=== PATIENT | male | born 1995 | race African-American/Black ===

== ENCOUNTER 2020-01-21 10:44 | Emergency (ER) | payer OTHER ==
[~2020-01-21] VITALS: Ht 177.8 cm; Wt 116.7 kg
[2020-01-21] MEDS ORDERED: NAPROXEN (10:51)
[2020-01-21 12:52] VITALS: BP 129/59
--- NOTE | 2020-01-21 14:20 | REP ---
SCROTAL ULTRASOUND: Real-time sonographic evaluation of the scrotum and contents performed. The testicles are normal in size and echotexture, right testicle, right testicle measuring 4.3 x 2.0 x 2.7 cm and left testicle 3.8 x 1.9 x 2.9 cm. There is no testicular mass or torsion, blood flow is seen in each testicles with duplex Doppler evaluation. Small cluster of calcifications are seen in the mid posterior right testicle. A cyst in the body of the left epididymis measures 6 mm. No varicocele is seen. There is not a significant hydrocele. IMPRESSION: No testicular mass or torsion. No evidence of varicocele. Subcentimeter cyst left epididymis. Electronically Signed by Raheem Maguire MD 01/21/2020 03:08 P
== END 2020-01-21 12:51 | disposition home or self-care (01) ==
LOC: M ED 10:44
DX: N50.3 Cyst of epididymis (principal)

== ENCOUNTER 2020-05-30 22:30 | Emergency (ER) | payer OTHER ==
[~2020-05-30] VITALS: Ht 177.8 cm; Wt 121.2 kg
[~2020-05-30 22:30] MED LIST: NAPROXEN
--- NOTE | 2020-05-30 23:45 | REPVR ---
PROCEDURE INFORMATION: Exam: XR Right Hip with Pelvis when Performed Exam date and time: 05/30/2020 11:21 PM Age: 25 years old Clinical indication: Hip pain; Right hip; Additional info: Pain/ dec rom TECHNIQUE: Imaging protocol: XR Right hip with pelvis when performed. Views: 2 or 3 views. COMPARISON: No relevant prior studies available. FINDINGS: Bones/joints: Unremarkable. No acute fracture. No dislocation. Soft tissues: Unremarkable. IMPRESSION: No acute fracture. Electronically signed by: Fernando Guillaume On 05/30/2020 23:44:47 PM
[2020-05-31 00:09] VITALS: BP 119/56
== END 2020-05-31 00:10 | disposition home or self-care (01) ==
LOC: M ED 22:30
DX: M25.551 Pain in right hip (principal)

== ENCOUNTER 2020-08-11 12:27 | Inpatient (IN) | payer OTHER ==
[~2020-08-11] VITALS: Ht 177.8 cm; Wt 113.3 kg
[2020-08-11 13:12] LABS: HEMATOCRIT 42.9 % (42.0-52.0); HEMOGLOBIN 13.5 g/dl (13.5-17.5); MEAN CORPUSCULAR HEMOGLOBIN 27.9 pg (27.0-33.0); MEAN CORPUSCULAR HGB CONC 31.5 g/dl (32.0-36.5); MEAN CORPUSCULAR VOLUME 88.6 fl (80.0-96.0); PLATELET COUNT, AUTOMATED 379 10^3/uL (150-450); RED BLOOD COUNT 4.84 10^6/uL (4.30-6.10); WHITE BLOOD COUNT 8.7 10^3/uL (4.0-10.0)
[2020-08-11 13:43] LABS: AMPHETAMINES LEVEL URINE NEGATIVE (NEGATIVE); BARBITURATES URINE NEGATIVE (NEGATIVE); BENZODIAZEPINES URINE NEGATIVE (NEGATIVE); CANNABINOIDS URINE NEGATIVE (NEGATIVE); COCAINE METABOLITE URINE NEGATIVE (NEGATIVE); METHADONE URINE NEGATIVE (NEGATIVE); OPIATES URINE NEGATIVE (NEGATIVE); PHENCYCLIDINE URINE NEGATIVE (NEGATIVE)
[2020-08-11 13:54] LABS: ACETAMINOPHEN LEVEL < 2.0 UG/ML (10.0-30.0); ALBUMIN 4.3 GM/DL (3.2-5.2); ALT/SGPT 39 U/L (12-78); BILIRUBIN,DIRECT 0.1 MG/DL (0.0-0.2); BILIRUBIN,TOTAL 0.4 MG/DL (0.2-1.0); BLOOD UREA NITROGEN 24 MG/DL (7-18); CALCIUM LEVEL 9.5 MG/DL (8.5-10.1); CARBON DIOXIDE LEVEL 30 MEQ/L (21-32); CHLORIDE LEVEL 103 MEQ/L (98-107); CREATININE FOR GFR 1.23 MG/DL (0.70-1.30); ETHYL ALCOHOL (ETHANOL) < 0.003 % (0.000-0.010); GLOMERULAR FILTRATION RATE > 60.0 (>60); GLUCOSE, FASTING 107 MG/DL (70-100); POTASSIUM SERUM 4.2 MEQ/L (3.5-5.1); SALICYLATE LEVEL < 1.7 MG/DL (5.0-30.0); SODIUM LEVEL 136 MEQ/L (136-145); THYROID STIMULATING HORMONE 0.575 uIU/ML (0.358-3.740); TOTAL PROTEIN 8.5 GM/DL (6.4-8.2)
[2020-08-11] MEDS ORDERED: OLANZapine ORAL DISINTEGRATING TAB 5MG PO PRN (21:30)
[2020-08-11] MEDS ORDERED: MAALOX 30 ML SUSP *UDC PO PRN (21:30)
[2020-08-11] MEDS ORDERED: ACETAMINOPHEN TAB 650MG DOSE (2X325MG) PO PRN (21:30)
[2020-08-11] MEDS ORDERED: MOM 30ML SUSPENSION UDC PO PRN (21:30)
[2020-08-11] MEDS ORDERED: NICOTINE 21MG/24HR 1 EA TRANSDERMAL TD PRN (21:30)
[2020-08-11] MEDS ORDERED: traZODone 50 MG TAB PO PRN (21:30)
[2020-08-11 23:02] VITALS: BP 134/72
[2020-08-12 06:25] VITALS: BP 137/60
[2020-08-12] MEDS ORDERED: hydrOXYzine 50 MG TAB PO PRN (11:00)
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
--- NOTE | 2020-08-12 14:11 | HPEPDOC ---
[facility] Medical History & Physical Date of Admission Aug 12, 2020 Date of Service: Aug 12, 2020 History and Physical CHIEF COMPLAINT: Medical evaluation HISTORY OF PRESENT ILLNESS: I am asked to provide a medical assessment of patient admitted to the psychiatric unit. My assessment is limited to medical problems and does not address any psychiatric problems which is deferred to the in-house psychiatrist. Patient was admitted to the psychiatric unit because of suicidal ideation. Patient tells me he is not having medical problems. Feeling well currently. Review of systems he does tell me that he was diagnosed with having varicocele right scrotum and has arranged for a follow-up appointment to be evaluated in [place]. PAST MEDICAL HISTORY: Right scrotum varicocele PAST SURGICAL HISTORY: Denies any SOCIAL HISTORY: Denies alcohol use Denies tobacco use Denies illicit drug use [employer] FAMILY HISTORY: Mother had history of bipolar and diabetes ALLERGIES: Please see below. REVIEW OF SYSTEMS: 10 point review of systems complete all negative otherwise stated in HPI HOME MEDICATIONS: Please see below. PHYSICAL EXAMINATION: Constitutional: Awake and alert, in no apparent distress ENT: Sclera are clear. Mucosa is moist. Respiratory: Lungs CTA bilaterally. No respiratory distress Cardiovascular: RRR S1 and S2 are normal, no murmur Gastrointestinal: Abdomen is soft, non distended, non tender, BS present. Musculoskeletal: No edema. No joint deformities. Neurologic: No focal neurological deficit. Mental Status: A&O x3, normal affect Skin: Warm, dry LABORATORY DATA: See below. IMAGING: None MICROBIOLOGY: Please see below. ASSESSMENT/PLAN 25-year-old male admitted to psychiatric unit for suicidal ideation. I'm asked see the patient's for medical evaluation. # Elevated blood pressure without a diagnosis of hypertension: I recommended the patient lifestyle modifications and a low-salt diet. follow-up with pcp. Vital Signs Vital Signs Date Time Temp Pulse Resp B/P (MAP) Pulse Ox O2 Delivery O2 Flow Rate FiO2 08/12/20 06:25 98.4 82 18 137/60 (85) 99 Room Air Laboratory Data Labs 24H Laboratory Tests 2 08/11/20 19:42: Coronavirus (COVID-19)(PCR) NEGATIVE Home Medications No Active Prescriptions or Reported Meds Allergies Coded Allergies: No Known Allergies (Unverified , 01/21/20) A-FIB/CHADSVASC A-FIB History Current/History of A-Fib/PAF?: No YOUSEF,ULI Weller MD Aug 12, 2020 14:11
[2020-08-12 16:00] VITALS: BP 150/92
[2020-08-12] MEDS ORDERED: SERTRALINE HCL 25 MG TABLET PO ONE (21:00)
[2020-08-13 06:03] VITALS: BP 114/59
--- NOTE | 2020-08-13 18:13 | MHIPNPDOC ---
[facility] Progress Note Progress Note DATE OF SERVICE: 08/13/20 HISTORY: As per previous notes: Chief Complaint "I was at a tipping point, I had a bad year, I just stopped caring". 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 NEW TEST RESULTS: See below CURRENT MEDICATIONS: See below. Mental Status Examination General Appearance: well groomed, appears stated age, hospital scrubs/clothing Build: tall, other (muscular ) Demeanor: guarded Eye Contact: avoidant Activity: average Behavior: superficially cooperative Speech: clear Mood: "feeling alright" Affect: constricted Thought Process: logical/linear Thought Content (Delusions): none reported Thought Content (Other): he denies SI/HI, thought delusions Thought Content (Aggressive): none reported Perception (Hallucinations): none reported Perception (Other): none reported Cognition (Impairment of): none reported Cognition(Intelligence Est.): above average Oriented: Awake, Alert, Oriented times three Insight: fair Judgment: Fair Psychosis: Denies Diagnoses Major Depressive Disorder, Single Episode, Moderate ASSESSMENT: His affect is constricted, he is planning to stay in the area, he is not going anywhere because of deployment response. He says his family is in [place] but he doesn't want to worry them with his problems. He says that he wi ll go to a different Therapist once he goes back to . in my opinion, he is minimizing his symptoms, he is very guarded. MANAGEMENT PLAN: Continue with current treatment plan TIME SPENT: 20 minutes. Vital Signs Vital Signs Date Time Temp Pulse Resp B/P (MAP) Pulse Ox O2 Delivery O2 Flow Rate FiO2 08/13/20 09:06 Room Air 08/13/20 06:03 98.4 80 18 114/59 (77) 98 Current Medications Current Medications Medications (Trade) Dose Ordered Sig/Mino Route PRN Reason Start Time Stop Time Status Last Admin Dose Admin Acetaminophen (Tylenol Tab) 650 mg Q6HP PRN PO HEADACHE or DISCOMFORT 08/11/20 21:30 08/12/20 22:29 Al Hydrox/Mg Hydrox/Simethicone (Mylanta) 30 ml Q4HP PRN PO HEARTBURN/INDIGESTION 08/11/20 21:30 Home Med (Med Rec Complete!) ASDIRECTED XX 08/11/20 15:30 08/11/20 15:29 DC Hydroxyzine HCl (Atarax) 50 mg Q6HP PRN PO Anxiety 08/12/20 11:00 Magnesium Hydroxide (Milk Of Magnesia) 30 ml DAILYPRN PRN PO CONSTIPATION 08/11/20 21:30 Nicotine (Nicoderm Cq 21mg) 1 patch DAILY PRN TD NICOTINE WITHDRAWL 08/11/20 21:30 Olanzapine (ZyPREXA ZYDIS) 5 mg Q4HP PRN PO AGITATION 08/11/20 21:30 Sertraline HCl (Zoloft) 50 mg QHS PO 08/13/20 21:00 Trazodone HCl (Desyrel) 50 mg QHSP PRN PO INSOMNIA 08/11/20 21:30 Allergies Coded Allergies: No Known Allergies (Unverified , 01/21/20) CAREY HOOD MD Aug 13, 2020 18:06
[2020-08-13] MEDS: SERTRALINE HCL 50 MG TAB PO SCH (21:00)
[2020-08-14 06:33] VITALS: BP 122/57
[2020-08-14 18:34] VITALS: BP 137/64
[2020-08-14] MEDS: SERTRALINE HCL 50 MG TAB PO SCH (21:00)
[2020-08-15 06:30] VITALS: BP 125/59
--- NOTE | 2020-08-15 13:04 | MHDSPDOC ---
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 Initially patient was withdrawn and preferred to stay in his room. He was extremely guarded and we had a lengthy conversation about medications and it appeared that he may be compliant at the end of my interview with him. It was reported to be that he had refused all medications, stating that much of his stressors are situational and that he did not feel that he was clinically depressed. DISCHARGE ASSESSMENT: At this time, patient is reporting no depression, anxiety, suicidal ideation. He still remained guarded in the interview but he did appear to have a more softer approach rather than a resistant and rigid affect. He has a normal mental status and he meets criteria for discharge today. He was extended the opportunity to stay on a voluntary admission but patient denied need. 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, Active Duty , Male, who presented with [facility] after he expressed depression and suicidal thoughts Speech is spontaneous, normal rate, tone and volume General Appearance: well groomed, appears stated age, hospital scrubs/clothing Build: tall, other (muscular ) Demeanor: guarded Eye Contact: avoidant Activity: average Behavior: superficially cooperative Speech: clear Mood: "feeling alright" Affect: constricted Thought Process: logical/linear Thought Content (Delusions): none reported Thought Content (Other): he denies SI/HI, thought delusions Thought Content (Aggressive): none reported Perception (Hallucinations): none reported Perception (Other): none reported Cognition (Impairment of): none reported Cognition(Intelligence Est.): above average Oriented: Awake, Alert, Oriented times three Insight: fair Judgment: Fair Psychosis: Denies MEDICATIONS ON DISCHARGE: No medications, patient refused anti-depressant medications PLAN/FOLLOWUP ARRANGEMENTS: [facility] The amount of time spent in the coordination of care for this patient was approximately 25 minutes. Vital Signs/I&Os Vital Signs Date Time Temp Pulse Resp B/P (MAP) Pulse Ox O2 Delivery O2 Flow Rate FiO2 08/15/20 06:30 97.7 73 16 125/59 (81) 08/14/20 18:34 99 Room Air Medications No Active Prescriptions or Reported Meds Allergies Coded Allergies: No Known Allergies (Unverified , 01/21/20) MAMI HARRIS NP Aug 15, 2020 13:04
== END 2020-08-15 14:20 | disposition home or self-care (01) | DRG 885 ==
LOC: M ED 12:27 → M ED INP 21:27 → M PSY 22:08
PROVIDERS: ADMIT Psychiatry & Neurology Addiction Medicine; ATTEND Psychiatry & Neurology Psychiatry
DX: F32.1 Major depressive disorder, single episode, moderate (principal); R45.851 Suicidal ideations

== ENCOUNTER 2021-02-04 16:18 | Emergency (ER) | payer OTHER ==
[~2021-02-04] VITALS: Ht 177.8 cm; Wt 127.3 kg
[2021-02-04] MEDS ORDERED: LIDOCAINE 5% (LIDODERM) PATCH TD ONE (16:45)
[2021-02-04] MEDS ORDERED: predniSONE 20 MG TAB PO ONE (16:45)
[2021-02-04] MEDS ORDERED: diazePAM 10 MG TAB PO ONE (16:45)
[2021-02-04] MEDS ORDERED: KETOROLAC 60MG 2ML VIAL IM ONE (16:45)
--- NOTE | 2021-02-04 18:11 | REPVR ---
PROCEDURE INFORMATION: Exam: CT Cervical Spine Without Contrast Exam date and time: 02/04/2021 5:05 PM Age: 25 years old Clinical indication: Injury or trauma; Other: Injury 10 days ago, heavy lifting today, pain down L arm; Blunt trauma TECHNIQUE: Imaging protocol: Computed tomography images of the cervical spine without contrast. Radiation optimization: All CT scans at this facility use at least one of these dose optimization techniques: automated exposure control; mA and/or kV adjustment per patient size (includes targeted exams where dose is matched to clinical indication); or iterative reconstruction. COMPARISON: No relevant prior studies available. FINDINGS: Vertebrae: No acute fracture. Straightening of cervical lordosis. C2-C3: No significant disc protrusion. No severe spinal canal stenosis. No significant neural foraminal narrowing. C3-C4: Small posterior central disc protrusion with impression upon the ventral margin of thecal sac and the spinal cord.. No severe spinal canal stenosis. No significant neural foraminal narrowing. C4-C5: No significant disc protrusion. No severe spinal canal stenosis. No significant neural foraminal narrowing. C5-C6: No significant disc protrusion. No severe spinal canal stenosis. No significant neural foraminal narrowing. C6-C7: No significant disc protrusion. No severe spinal canal stenosis. No significant neural foraminal narrowing. C7-T1: No significant disc protrusion. No severe spinal canal stenosis. No significant neural foraminal narrowing. Soft tissues: Unremarkable. Lungs: Lung apices are normal. IMPRESSION: 1. Small posterior central disc protrusion at C3-C4. Electronically signed by: Siomara Dawkins On 02/04/2021 18:11:15 PM
[2021-02-04] MEDS ORDERED: NAPR-837 PO (18:26)
[2021-02-04] MEDS ORDERED: PRED20TA PO (18:26)
[2021-02-04] MEDS ORDERED: METH-1165 PO (18:26)
[2021-02-04] MEDS ORDERED: ASPE4PAD TOP (18:26)
[2021-02-04 18:40] VITALS: BP 147/68
[2021-02-05] MEDS ORDERED: **NOTE PATIENT COMMENT** MISC XX ONE (05:00)
== END 2021-02-04 18:42 | disposition home or self-care (01) ==
LOC: M ED 16:18
DX: M50.21 Other cervical disc displacement, high cervical region (principal); S39.012A Strain of muscle, fascia and tendon of lower back, initial encounter; X50.0XXA Overexertion from strenuous movement or load, initial encounter; Y92.9 Unspecified place or not applicable; Y93.B3 Activity, free weights; Y99.9 Unspecified external cause status
CPT/HCPCS: 72125; 96372; 99283; J1885; J7512